=== PATIENT | female | born 1980 | race Caucasian/White ===

== ENCOUNTER 2016-09-07 08:34 | Emergency (ER) | payer SELFPAY ==
[~2016-09-07] VITALS: Ht 170.2 cm; Wt 100.0 kg
[~2016-09-07 08:34] MED LIST: ARIP15TA2 PO; BACL20TA PO; LEVE500T53 PO; RANI150T8 PO
[2016-09-07 10:02] VITALS: BP 117/70
== END 2016-09-07 10:04 | disposition home or self-care (01) ==
LOC: ED 09:01
DX: R60.0 Localized edema (principal); F17.200 Nicotine dependence, unspecified, uncomplicated
CPT/HCPCS: 99284

== ENCOUNTER 2016-11-28 19:42 | Emergency (ER) | payer SELFPAY ==
[~2016-11-28] VITALS: Ht 170.2 cm; Wt 101.7 kg
[~2016-11-28 19:42] MED LIST changes: -ARIP15TA2 PO; +ARIP15TA3 PO
[2016-11-28] MEDS ORDERED: KETOROLAC 30 MG/1 ML IVPush ONE (20:00)
[2016-11-28] MEDS ORDERED: ASPIRIN 81 MG TABLET CHEW PO ONE (20:00)
[2016-11-28] MEDS ORDERED: SODIUM CHLORIDE FLUSH 10ML SYR IVF ONE (20:00)
[2016-11-28] MEDS ORDERED: ASPIRIN 81 MG TABLET CHEW ONE (20:15)
[2016-11-28] MEDS ORDERED: KETOROLAC 30 MG/1 ML ONE (20:15)
[2016-11-28 20:39] LABS: HEMATOCRIT 44.1 % (34.6-47.8); HEMOGLOBIN 15.1 g/dL (11.7-16.4); WHITE BLOOD COUNT 12.3 x10^3/uL (3.4-10)
[2016-11-28 20:51] LABS: BLOOD UREA NITROGEN 12 mg/dL (7-18)
[2016-11-28 20:56] LABS: IS PT STATUS REG ER OR PRE ER? YES
[2016-11-28 21:33] LABS: PATH.CAST-FLAG NOT PRESENT; SPERM-FLAG NOT PRESENT; SRC-FLAG NOT PRESENT; XTAL-FLAG NOT PRESENT; YLC-FLAG NOT PRESENT
[2016-11-28 22:48] VITALS: BP 116/67
[2016-11-28 22:55] LABS: IS PT STATUS REG ER OR PRE ER? YES
== END 2016-11-28 23:19 | disposition home or self-care (01) ==
LOC: ED 22:28
DX: R07.89 Other chest pain (principal); R09.1 Pleurisy; R94.31 Abnormal electrocardiogram [ECG] [EKG]; Z88.1 Allergy status to other antibiotic agents; Z88.8 Allergy status to other drugs, medicaments and biological substances; Z88.6 Allergy status to analgesic agent
CPT/HCPCS: 36415; 71020; 80048; 81001; 82040; 83880; 84484; 85025; 85379; 87086; 93005; 96374; 99285; J1885

== ENCOUNTER 2019-02-27 10:09 | Emergency (ER) | payer OTHER ==
[~2019-02-27] VITALS: Ht 167.6 cm; Wt 98.7 kg
[~2019-02-27 10:09] MED LIST changes: +RANI-467 PO; -RANI150T8 PO
[2019-02-27 11:30] LABS: BASOPHILS # (AUTO) 0.05 x10^3/uL (0-0.1); BASOPHILS % (AUTO) 1 % (0-1); EOSINOPHILS # (AUTO) 0.18 x10^3/uL (0-0.4); EOSINOPHILS % (AUTO) 2 % (1-7); LYMPHOCYTES # (AUTO) 3.14 x10^3/uL (1-3.4); LYMPHOCYTES % (AUTO) 33 % (22-44); MD NO; MEAN CORPUSCULAR HEMOGLOBIN 31.8 pg (27.0-34.8); MEAN CORPUSCULAR HGB CONC 33.8 g/dL (32.4-35.8); MEAN CORPUSCULAR VOLUME 94.2 fL (80-100); MEAN PLATELET VOLUME 8.1 fL (7.4-10.4); MONOCYTES # (AUTO) 1.03 x10^3/uL (0.2-0.8); MONOCYTES % (AUTO) 11 % (2-9); NEUTROPHILS % (AUTO) 54 % (42-75); PLATELET COUNT 302 x10^3/uL (130-400); RED BLOOD COUNT 4.96 x10^6/uL (3.82-5.3); RED CELL DISTRIBUTION WIDTH 13.5 % (9.6-15.2)
[2019-02-27 11:41] LABS: ALANINE AMINOTRANSFERASE 31 U/L (12-78); ALBUMIN 4.4 g/dL (3.4-5.0); ANION GAP 5 mmol/L (5-15); CALCIUM 9.4 mg/dL (8.5-10.1); CHLORIDE 108 mmol/L (98-107); CREATININE 0.87 mg/dL (0.55-1.02)
[2019-02-27 11:43] LABS: ALKALINE PHOSPHATASE 95 U/L (45-117); BILIRUBIN,TOTAL 0.4 mg/dL (0.2-1.0); TOTAL PROTEIN 8.1 g/dL (6.4-8.2)
--- NOTE | 2019-02-27 13:15 | NUR ---
TO ROOM FROM LOBBY. NAD.
--- NOTE | 2019-02-27 13:40 | NUR ---
MD IS AT THE BEDSIDE FOR ASSESSMENT
--- NOTE | 2019-02-27 13:45 | NUR ---
PT TO THE RESTROOM WITH A STEADY GAIT.
[2019-02-27 13:52] LABS: MICROSCOPIC INDICATED
[2019-02-27 14:17] LABS: CULTURE INDICATED? YES
[2019-02-27] MEDS ORDERED: OXYcodone/APAP 5/325MG TABLET PO ONE (14:30)
[2019-02-27] MEDS ORDERED: KETOROLAC 30 MG/1 ML IM ONE (14:30)
[2019-02-27] MEDS ORDERED: KETOROLAC 30 MG/1 ML ONE (14:33)
[2019-02-27] MEDS ORDERED: OXYcodone/APAP 5/325MG TABLET ONE (14:34)
--- NOTE | 2019-02-27 15:00 | NUR ---
PT TO CT W TECH
[2019-02-27 15:34] VITALS: BP 112/61
== END 2019-02-27 16:00 | disposition home or self-care (01) ==
LOC: ED 15:58
DX: K86.1 Other chronic pancreatitis (principal); Z90.710 Acquired absence of both cervix and uterus
CPT/HCPCS: 36415; 74176; 80053; 81001; 83690; 85025; 87086; 96372; 99284; J1885

== ENCOUNTER 2019-04-05 10:47 | Emergency (ER) | payer SELFPAY ==
[~2019-04-05] VITALS: Ht 167.6 cm; Wt 99.4 kg
[2019-04-05 11:40] LABS: MICROSCOPIC NOT IND
[2019-04-05 11:45] LABS: CULTURE INDICATED? NO
--- NOTE | 2019-04-05 12:36 | NUR ---
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
[2019-04-05] MEDS ORDERED: OXYB5TAB10 PO (12:45)
[2019-04-05] MEDS ORDERED: DIPH25CA61 PO (12:45)
--- NOTE | 2019-04-05 12:45 | NUR ---
First contact with pt. Pt c/o R flank pain x1 month, states was diagnosed with a kidney stone 3 weeks ago and has been following up with [facility] which is her PCP to manage this but is not getting better. Pt placed in gown and positioned for comfort in bed with warm blanket. Continuous oxygen and BP Monitors applied, all safety measures observed.
[2019-04-05] MEDS ORDERED: METHOCARBAMOL 750 MG TABLET PO ONE (13:30)
[2019-04-05] MEDS ORDERED: HYDROmorphone 2 MG/ML, 1ML IM ONE (13:30)
[2019-04-05] MEDS ORDERED: METHOCARBAMOL 750 MG TABLET ONE (13:49)
[2019-04-05] MEDS ORDERED: HYDROmorphone 2 MG/ML, 1ML ONE (13:49)
--- NOTE | 2019-04-05 14:03 | NUR ---
Pt medicated per MAR, denies other needs.
--- NOTE | 2019-04-05 14:43 | NUR ---
Pt states pain improved after medications given. Dr. Landeros at bedside to discuss POC with pt.
[2019-04-05 15:08] VITALS: BP 122/74
== END 2019-04-05 15:10 | disposition home or self-care (01) ==
LOC: ED 14:45
DX: M54.5 Low back pain (principal); F17.200 Nicotine dependence, unspecified, uncomplicated; R31.9 Hematuria, unspecified
CPT/HCPCS: 74176; 81003; 96372; 99284; J1170

== ENCOUNTER 2019-09-09 10:14 | Emergency (ER) | payer OTHER ==
[~2019-09-09] VITALS: Ht 167.6 cm; Wt 101.6 kg
[~2019-09-09 10:14] MED LIST changes: +DIPH25CA61 PO; +OXYB5TAB10 PO
[2019-09-09 10:24] VITALS: BP 121/70
[2019-09-09 10:44] LABS: BASOPHILS # (AUTO) 0.06 x10^3/uL (0-0.1); BASOPHILS % (AUTO) 1 % (0-1); EOSINOPHILS # (AUTO) 0.15 x10^3/uL (0-0.4); EOSINOPHILS % (AUTO) 2 % (1-7); LYMPHOCYTES # (AUTO) 2.82 x10^3/uL (1-3.4); LYMPHOCYTES % (AUTO) 28 % (22-44); MD NO; MEAN CORPUSCULAR HEMOGLOBIN 31.4 pg (27.0-34.8); MEAN CORPUSCULAR HGB CONC 33.8 g/dL (32.4-35.8); MEAN PLATELET VOLUME 7.7 fL (7.4-10.4); MONOCYTES % (AUTO) 6 % (2-9); NEUTROPHILS # (AUTO) 6.42 x10^3/uL (1.8-6.8); NEUTROPHILS % (AUTO) 64 % (42-75); PLATELET COUNT 311 x10^3/uL (130-400); RED BLOOD COUNT 4.98 x10^6/uL (3.82-5.3); RED CELL DISTRIBUTION WIDTH 13.2 % (9.6-15.2)
[2019-09-09 10:55] LABS: ALANINE AMINOTRANSFERASE 28 U/L (12-78); ANION GAP 5 mmol/L (5-15); CALCIUM 9.2 mg/dL (8.5-10.1); CHLORIDE 109 mmol/L (98-107)
[2019-09-09 11:00] LABS: ALKALINE PHOSPHATASE 88 U/L (45-117); BILIRUBIN,TOTAL 0.2 mg/dL (0.2-1.0); TOTAL PROTEIN 7.8 g/dL (6.4-8.2); TROPONIN I < 0.015 ng/mL (0.000-0.045)
--- NOTE | 2019-09-09 11:49 | NUR ---
PT CAME IN CO OF CHEST PAIN THAT CAME ON SUDDENLY LAST NIGHT BUT WENT AWAY ONLY TO RETURN THIS MORNING. PT SAYS THE PAIN RADIATES AND FEELS ACHY UNDER HER LEFT BREAST. EKG COMPLETED. PT IS CONNECTED TO MONITORING EQUIPMENT. CALL LIGHT WITHIN REACH
--- NOTE | 2019-09-09 11:50 | NUR ---
REPORT FROM GARDENIA REYNOLDS. PT CARE RESPONSIBILITIES ASSUMED.
--- NOTE | 2019-09-09 12:51 | NUR ---
Note bria in EDM - 09/09/19 at 1254 by MARIEL patient arrives with bradycardia and hypotension from [facility], where she was sent over. she had recent surgery of lamenectomy and foramenotomy one week ago. she arrives feeling weak for three days. patient states her bp has been low since her surgery. on monitor, rails up.
[2019-09-09] MEDS ORDERED: KETOROLAC 60 MG/2 ML ONE (12:54)
[2019-09-09] MEDS ORDERED: KETOROLAC 30 MG/1 ML IM ONE (13:00)
== END 2019-09-09 13:36 | disposition home or self-care (01) ==
LOC: ED 13:33
DX: R07.89 Other chest pain (principal); R94.31 Abnormal electrocardiogram [ECG] [EKG]; F17.200 Nicotine dependence, unspecified, uncomplicated; Z86.718 Personal history of other venous thrombosis and embolism
CPT/HCPCS: 36415; 71045; 80053; 83690; 84484; 85025; 93005; 96372; 99285; J1885

== ENCOUNTER → 2020-01-01 | Outpatient (CLI) | payer OTHER ==
[~2020-01-01] MED LIST changes: +OMNIPAQUE 350 MG/ML, 150 ML BOTTLE ONE
== END | disposition home or self-care (01) ==
LOC: CFH 12:53
PROVIDERS: ATTEND Physician Assistant
DX: R31.0 Gross hematuria (principal)
CPT/HCPCS: 74178; Q9967

== ENCOUNTER 2020-01-15 17:07 | Emergency (ER) | payer OTHER ==
[~2020-01-15] VITALS: Ht 167.6 cm; Wt 103.5 kg
[~2020-01-15 17:07] MED LIST changes: -OMNIPAQUE 350 MG/ML, 150 ML BOTTLE ONE
[2020-01-15 17:11] VITALS: BP 152/75
[2020-01-15] MEDS ORDERED: CYCL-259 PO (20:58)
[2020-01-15] MEDS ORDERED: PRAZ1CAP2 PO (20:58)
[2020-01-15] MEDS ORDERED: KETOROLAC 60 MG/2 ML ONE (21:11)
--- NOTE | 2020-01-15 21:20 | NUR ---
PT MEDICATED PER MAR.
[2020-01-15] MEDS ORDERED: KETOROLAC 30 MG/1 ML IM ONE (21:30)
== END 2020-01-15 21:33 | disposition home or self-care (01) ==
LOC: ED 21:18
DX: S76.012A Strain of muscle, fascia and tendon of left hip, initial encounter (principal); F17.200 Nicotine dependence, unspecified, uncomplicated; Z86.718 Personal history of other venous thrombosis and embolism; X58.XXXA Exposure to other specified factors, initial encounter; Y93.89 Activity, other specified; Y92.89 Other specified places as the place of occurrence of the external cause; Y99.8 Other external cause status
CPT/HCPCS: 73502; 96372; 99283; J1885